=== PATIENT | male | born 1965 | race Caucasian/White ===

== ENCOUNTER 2017-08-05 11:11 | Outpatient (RCR) | payer SELFPAY | END 2017-08-05 14:42 | disposition home or self-care (01) | LOC: OT 11:11 | PROVIDERS: Visit Provider Orthopaedic Surgery | DX: S69.91XA Unspecified injury of right wrist, hand and finger(s), initial encounter (principal) | CPT/HCPCS: 97760 ==

== ENCOUNTER → 2017-10-30 07:20 | Outpatient (CLI) | payer SELFPAY ==
[2017-11-04 14:48] LABS: Testosterone, Total, LC/MS 388.7 ng/dL (264.0-916.0); Testosterone,Free 6.8 pg/mL (7.2-24.0)
== END ==
PROVIDERS: PCP Emergency Medicine; Visit Provider Nurse Practitioner Family
DX: R53.83 Other fatigue (principal)
CPT/HCPCS: 36415; 84402; 84403

== ENCOUNTER → 2019-10-20 14:06 | Outpatient (CLI) | payer OTHER, SELFPAY | PROVIDERS: Visit Provider Otolaryngology | DX: Z03.818 Encounter for observation for suspected exposure to other biological agents ruled out (principal) | CPT/HCPCS: U0003 ==